=== PATIENT | female | born 1960 | race Two or more races ===

== ENCOUNTER 2021-08-25 20:31 | Emergency (ER) | payer OTHER ==
[~2021-08-25] VITALS: Ht 147.3 cm; Wt 63.5 kg
[2021-08-25] MEDS ORDERED: ATORVASTATIN CA20 MG PO (20:44)
[2021-08-25] MEDS ORDERED: ATIVAN1 M1 PO (20:44)
[2021-08-25] MEDS ORDERED: COZAAR50 MG PO (20:44)
[2021-08-25] MEDS ORDERED: ZYPREXA ZYDIS5 MG PO (20:44)
[2021-08-25] MEDS ORDERED: VAZALORE81 MG PO (20:45)
[2021-08-25] MEDS ORDERED: LEVO-T50 MCG PO (20:45)
[2021-08-25] MEDS ORDERED: LASIX20 MG PO (23:22)
== END 2021-08-26 00:20 | disposition home or self-care (01) ==
LOC: ER 20:31
DX: R60.0 Localized edema (principal); N39.0 Urinary tract infection, site not specified

== ENCOUNTER 2022-06-25 16:09 | Emergency (ER) | payer OTHER ==
[~2022-06-25] VITALS: Ht 157.5 cm; Wt 65.8 kg
[~2022-06-25 16:09] MED LIST: ATIVAN1 M1 PO; ATORVASTATIN CA20 MG PO; COZAAR50 MG PO; LASIX20 MG PO; LEVO-T50 MCG PO; VAZALORE81 MG PO; ZYPREXA ZYDIS5 MG PO
[2022-06-25] MEDS ORDERED: LEXAPRO5 MG (16:28)
[2022-06-25] MEDS ORDERED: LIPITOR40 M1 (16:28)
[2022-06-25] MEDS ORDERED: RESTORIL15 M1 (16:28)
== END 2022-06-25 18:30 | disposition home or self-care (01) ==
LOC: ER 16:09
DX: M79.605 Pain in left leg (principal)

== ENCOUNTER 2023-11-18 19:19 | Emergency (ER) | payer OTHER ==
[~2023-11-18] VITALS: Ht 147.3 cm; Wt 63.5 kg
[~2023-11-18 19:19] MED LIST changes: +LEXAPRO5 MG; +LIPITOR40 M1; +RESTORIL15 M1
[2023-11-18] MEDS ORDERED: RESTORIL15 M1 PO (20:27)
[2023-11-18] MEDS ORDERED: RISPERDAL1 MG PO (20:27)
[2023-11-18] MEDS ORDERED: BUSPIRONE HCL7.5 MG PO (20:28)
[2023-11-18] MEDS ORDERED: ESCITALOPRA5 MG/5 ML PO (20:28)
[2023-11-18] MEDS ORDERED: CILOSTAZOL100 MG PO (20:29)
[2023-11-18 21:12] LABS: HEMATOCRIT 37.1 % (36.0-45.00); HEMOGLOBIN 12.6 g/dL (12.0-15.00); MEAN CELL VOLUME 92.8 fL (80.00-100.00); MEAN CORPUSCULAR HEMOGLOBIN 31.5 pg (27.00-32.0); PLATELET COUNT 233 K/uL (150-450)
[2023-11-18] MEDS ORDERED: METOPROLOL TARTRATE 25 MG TABLET PO ONE (21:15)
[2023-11-18] MEDS ORDERED: 0.9 % SODIUM CHLORIDE 1,000 ML IV SCH (21:15)
[2023-11-18 22:02] LABS: ALBUMIN 4.4 gm/dL (3.4-5.0); BILIRUBIN TOTAL 0.28 mg/dL (0.3-1.2); CALCIUM 9.9 mg/dL (8.5-10.1); CREATININE SERUM 0.81 mg/dL (0.55-1.02); GFR 71.88; GLOBULINA 2.7 G/DL (2.4-3.5); POTASSIUM 4.53 mEq/L (3.5-5.1); TOTAL PROTEIN 7.1 gm/dL (6.4-8.2)
[2023-11-18 22:03] LABS: TSH 10.9 uIU/mL (0.358-3.74)
[2023-11-18] MEDS ORDERED: TOPROL XL25 MG PO (23:05)
[2023-11-18] MEDS ORDERED: SYNTHROID75 MCG PO (23:05)
== END 2023-11-18 23:34 | disposition home or self-care (01) ==
LOC: ER 19:19
PROVIDERS: General Practice
DX: R00.0 Tachycardia, unspecified (principal); I10 Essential (primary) hypertension; E03.9 Hypothyroidism, unspecified

== ENCOUNTER 2024-05-21 10:09 | Emergency (ER) | payer OTHER ==
[~2024-05-21] VITALS: Ht 147.3 cm; Wt 80.7 kg
[~2024-05-21 10:09] MED LIST changes: +BUSPIRONE HCL7.5 MG PO; +CILOSTAZOL100 MG PO; +ESCITALOPRA5 MG/5 ML PO; +RESTORIL15 M1 PO; +RISPERDAL1 MG PO; +SYNTHROID75 MCG PO; +TOPROL XL25 MG PO
[2024-05-21] MEDS ORDERED: ACETAMINOPHEN 500 MG GEL..CAP PO ONE ×2 (12:45→14:01)
== END 2024-05-21 16:37 | disposition home or self-care (01) ==
LOC: ER 10:11
DX: U07.1 COVID-19 (principal); J00 Acute nasopharyngitis [common cold]; I10 Essential (primary) hypertension; E03.8 Other specified hypothyroidism; E11.9 Type 2 diabetes mellitus without complications

== ENCOUNTER 2024-09-13 17:48 | Emergency (ER) | payer OTHER ==
[~2024-09-13] VITALS: Ht 147.3 cm; Wt 81.6 kg
[2024-09-13] MEDS ORDERED: CLINDAMYCIN PHOSPHATE 150 MG/ML (900mg) IV ONE (19:45)
[2024-09-13] MEDS ORDERED: DEXAMETHASONE SODIUM PHOSPHATE 4 MG/ML VIAL IV ONE (19:45)
[2024-09-13] MEDS ORDERED: KETOROLAC TROMETHAMINE 30 MG VIAL IV ONE (19:45)
[2024-09-13 20:08] LABS: HEMATOCRIT 37.5 % (36.0-45.00); HEMOGLOBIN 12.6 g/dL (12.0-15.00); MEAN CELL VOLUME 89.7 fL (80.00-100.00); MEAN CORPUSCULAR HEMOGLOBIN 30.2 pg (27.00-32.0); MEAN CORPUSCULAR HGB CONC 33.6 g/dl (32.0-36.0); PLATELET COUNT 224 K/uL (150-450); RED BLOOD COUNT 4.18 M/uL (4.00-6.00); RED CELL DISTRIBUTION WIDTH 13.4 % (11.5-14.5)
[2024-09-13 20:31] LABS: CALCIUM 9.6 mg/dL (8.5-10.1); CREATININE SERUM 1.16 mg/dL (0.55-1.02); GFR 47.49; POTASSIUM 4.92 mEq/L (3.5-5.1)
== END 2024-09-14 00:31 | disposition home or self-care (01) ==
LOC: ER 17:50
PROVIDERS: Emergency Medicine
DX: L73.2 Hidradenitis suppurativa (principal); I10 Essential (primary) hypertension

== ENCOUNTER → 2025-01-26 | Emergency (ER) | payer OTHER ==
[~2025-01-26] VITALS: Ht 157.5 cm; Wt 86.2 kg
[2025-01-26 11:07] LABS: HEMATOCRIT 31.9 % (36.0-45.00); MEAN CELL VOLUME 88.1 fL (80.00-100.00); MEAN CORPUSCULAR HEMOGLOBIN 30.3 pg (27.00-32.0); MEAN CORPUSCULAR HGB CONC 34.4 g/dl (32.0-36.0); PLATELET COUNT 224 K/uL (150-450); RED BLOOD COUNT 3.62 M/uL (4.00-6.00); RED CELL DISTRIBUTION WIDTH 13.8 % (11.5-14.5)
[2025-01-26 11:21] LABS: PH,URINE 7.5 (5.0-8.0); URINE APPEARANCE Cloudy; URINE BILIRRUBIN Negative (NEGATIVE); URINE BLOOD Negative; URINE COLOR Yellow; URINE GLUCOSE Negative (NEGATIVE); URINE KETONE Trace (NEGATIVE); URINE LEUKOCYTE Moderate; URINE NITRATE Positive; URINE PROTEIN Negative (NEGATIVE)
[2025-01-26 11:25] LABS: URINE BACTERIA 4906.9 uL (0.0-1933); URINE EPITHELIAL CELLS 111.1 uL (0.0-38.8); URINE RBC 12.6 uL (0.0-20.8); URINE WBC 107.8 uL (0.0-23.2)
[2025-01-26 16:24] LABS: URINE YEAST FEW /hpf
[2025-01-26 16:37] LABS: ALBUMIN 3.9 gm/dL (3.4-5.0); CALCIUM 8.9 mg/dL (8.5-10.1); CREATININE SERUM 1.08 mg/dL (0.55-1.02); GFR 51.4; GLOBULINA 2.7 G/DL (2.4-3.5); POTASSIUM 4.59 mEq/L (3.5-5.1); TOTAL PROTEIN 6.6 gm/dL (6.4-8.2)
[2025-01-26 16:38] LABS: BILIRUBIN TOTAL 0.38 mg/dL (0.3-1.2)
== END | disposition left against medical advice (07) ==
LOC: ER 08:05
PROVIDERS: General Practice
DX: Z53.21 Procedure and treatment not carried out due to patient leaving prior to being seen by health care provider (principal)